=== PATIENT | female | born 1985 | race Caucasian/White ===

== ENCOUNTER 2021-04-21 18:47 | Emergency (ER) | payer OTHER ==
[~2021-04-21] VITALS: Ht 170.2 cm; Wt 77.3 kg
[~2021-04-21 18:47] MED LIST: DULO20CA PO; LAMO25TA31 PO; MULT1TAB92 PO; QUET25TA5 PO; THIA100T22 PO; TRAM-48 PO
--- NOTE | 2021-04-21 19:14 | PHYS DOC ---
Past Medical History Past Medical History: Alcoholism, Seizure Past Surgical History: Other Additional Past Surgical Histo: nose surgery Smoking Status: Never Smoker Alcohol Use: Heavy Drug Use: None General Adult EDM: Chief Complaint: ALCOHOL INTOXICATION HPI: HPI: Patient is a 35 year old female past medical history alcohol abuse anxiety depression presents requesting help for her alcohol abuse. Patient states she was sober for 4 months. States did this at home with no help. Patient states few months ago she started to drink daily again. Patient's last drink was an hour ago. She presents with her father she is very tearful and crying patient states she would like to get help with her alcohol use. Patient denies any homicidal or suicidal ideation. Patient is fully vaccinated. Patient states 2 to 3 days ago she has had multiple episodes of nausea vomiting diarrhea associated with cough and shortness of breath. Patient states she has had previous alcohol withdrawal seizures. Review of Systems: Review of Systems: Review of systems: Constitutional symptoms- No fever, no chills. Eyes- No Discharge, No Visual Loss Respiratory symptoms- No shortness of breath, No wheezing, No Dyspnea on Exertion Cardiovascular Systems; No chest pain, No Palpitations, No syncope Gastrointestinal symptoms: NO abdominal pain, Positive nausea nausea, Positive vomiting or diarrhea. Genitourinary symptoms: No dysuria. Musculoskeletal symptoms: No back pain No extremity pain. NEUROLOGICAL Symptoms: No headache, no generalized weakness; No focal Weakness Skin: No rash. Heart Score: C/O Chest Pain: N/A Risk Factors: Risk Factors: DM, Current or recent (<one month) smoker, HTN, HLP, family history of CAD, obesity. Risk Scores: Score 0 - 3: 2.5% MACE over next 6 weeks - Discharge Home Score 4 - 6: 20.3% MACE over next 6 weeks - Admit for Clinical Observation Score 7 - 10: 72.7% MACE over next 6 weeks - Early Invasive Strategies Allergies: Allergies: Allergies Coded Allergies Type Severity Reaction Last Updated Verified No Known Drug Allergies 10/11/20 No Physical Exam: PE: General: alert, no acute distress. Skin: warm, dry and intact, no erythema, no rash. HENT: bilateral external ears normal, oropharynx moist, nose normal. Head:: Normocephalic, atraumatic. Neck: Trachea midline. Eyes: EOMI, Normal conjunctiva, No drainage CARDIOVASCULAR: Regular rate and rhythm RESPIRATORY: No respiratory distress Back: Full range of motion. MUSCULOSKELETAL: Full range of motion of bilateral upper and lower extremities. GASTROINTESTINAL: Abdomen soft without rebound or guarding. NEUROLOGICAL: Alert and noted to person, place and time. No neurological deficits observed Psychiatric: Cooperative. Normal judgment EKG: EKG: [] Radiology/Procedures: Radiology/Procedures: [] Course & Med Decision Making: Course & Med Decision Making Pertinent Labs and Imaging studies reviewed. (See chart for details) []Evalauted by PAT. Patient accepted by [facility]SI. Patient to be discharged by POV- father. Treatment in ER iv x 2 fluids zofran and ativan. Rx ativan. Dragon Disclaimer: Hoda Disclaimer: This electronic medical record was generated, in whole or in part, using a voice recognition dictation system. Departure Departure Impression: Primary Impression: Alcohol abuse Disposition: 01 HOME / SELF CARE / HOMELESS Condition: STABLE Referrals: NO PCP (PCP) Patient Instructions: Alcohol Intoxication, Alcohol Problems Scripts Lorazepam (ATIVAN) 1 Mg Tablet 1 MG PO TID PRN for TREMORS, #14 TAB Prov: NICOLE DYKES DO 04/22/21 NICOLE DYKES DO Apr 21, 2021 19:14
[2021-04-21 19:31] LABS: BASO % 0 % (0-3); EOS % 0 % (0-3); HEMATOCRIT 49.7 % (36.0-47.0); LYMPH % 22 % (24-48); MEAN CORPUSCULAR HEMOGLOBIN 30 pg (25-35); MEAN CORPUSCULAR HGB CONC 34 g/dL (31-37); MEAN CORPUSCULAR VOLUME 89 fL (79-100); MONO # 0.4 x10^3/uL (0.0-1.1); MONO % 4 % (0-9); NEUT # 6.9 x10^3/uL (1.8-7.7); NEUT % 73 % (31-73); PLATELET COUNT 383 x10^3/uL (140-400); RED BLOOD COUNT 5.61 x10^6/uL (3.50-5.40); RED CELL DISTRIBUTION WIDTH 13.7 % (11.5-14.5); WHITE BLOOD COUNT 9.3 x10^3/uL (4.0-11.0)
[2021-04-21 19:42] LABS: CALCIUM 8.9 mg/dL (8.5-10.1); CREATININE 1.1 mg/dL (0.6-1.0); GFR 55.9
[2021-04-21 19:47] LABS: ALBUMIN 4.9 g/dL (3.4-5.0); ALBUMIN/GLOBULIN RATIO 1.1 (1.0-1.7); TOTAL BILIRUBIN 0.7 mg/dL (0.2-1.0); TOTAL PROTEIN 9.3 g/dL (6.4-8.2)
[2021-04-21 21:34] LABS: U PREG PATIENT NEGATIVE (NEG)
[2021-04-21 21:39] LABS: AMPHETAMINE/METHAMPHETAMINE NEG (NEG); BARBITURATES NEG (NEG); BENZODIAZEPINES NEG (NEG); CANNABINOIDS NEG (NEG); COCAINE NEG (NEG); METHADONE NEG (NEG); OPIATES NEG (NEG); PHENCYCLIDINE NEG (NEG)
[2021-04-21] MEDS ORDERED: ONDANSETRON PF 4 MG/2 ML VIAL. ONE (22:22)
[2021-04-21] MEDS ORDERED: ONDANSETRON PF 4 MG/2 ML VIAL. IVP ONE (22:30)
[2021-04-21] MEDS ORDERED: IV NORMAL SALINE 1000ML BAG 1,000 ML IV ONE (23:45)
[2021-04-22] MEDS ORDERED: ONDANSETRON PF 4 MG/2 ML VIAL. IVP ONE (00:30)
[2021-04-22] MEDS ORDERED: LORA-434 PO (00:50)
[2021-04-22 01:17] VITALS: BP 118/65
--- NOTE | 2021-04-22 17:40 | NUR ---
Attempted to contact pt concerning covid results. No answer, left a voicemail to return the call.
--- NOTE | 2021-04-23 17:54 | NUR ---
IP: Attempted a second time to contact pt concerning covid results. Again, no answer and left a voicemail to return the call.
--- NOTE | 2021-04-24 12:05 | NUR ---
IP: Pt returned my call. Informed her of negative covid test. Pt verbalized understanding.
== END 2021-04-22 01:26 | disposition home or self-care (01) ==
LOC: ER 18:47
DX: F10.20 Alcohol dependence, uncomplicated (principal); R11.2 Nausea with vomiting, unspecified; R19.7 Diarrhea, unspecified; F41.8 Other specified anxiety disorders; Z20.822 Contact with and (suspected) exposure to COVID-19; Y90.8 Blood alcohol level of 240 mg/100 ml or more
CPT/HCPCS: 36415; 80053; 80307; 81025; 85025; 87426; 96361; 96374; 96375; 96376; 99285; G0480; J2060; J2405; J7030; U0003; U0005

== ENCOUNTER 2021-05-24 11:27 | Inpatient (IN) | payer OTHER ==
[~2021-05-24] VITALS: Ht 170.2 cm; Wt 77.3 kg
[~2021-05-24 11:27] MED LIST changes: +LORA-434 PO
[2021-05-24] MEDS ORDERED: FAMOTIDINE 20 MG/2 ML VIAL IVP ONE (12:30)
[2021-05-24] MEDS ORDERED: IV NORMAL SALINE 1000ML BAG 1,000 ML IV ONE (12:30)
[2021-05-24] MEDS ORDERED: ONDANSETRON PF 4 MG/2 ML VIAL. IVP ONE (12:30)
[2021-05-24] MEDS ORDERED: KETOROLAC 15 MG/ML VIAL. IVP ONE (12:30)
[2021-05-24 12:50] LABS: BASO % 0 % (0-3); EOS % 0 % (0-3); HEMATOCRIT 36.9 % (36.0-47.0); HEMOGLOBIN 12.7 g/dL (12.0-15.5); LYMPH # 1.1 x10^3/uL (1.0-4.8); LYMPH % 21 % (24-48); MEAN CORPUSCULAR HEMOGLOBIN 31 pg (25-35); MEAN CORPUSCULAR HGB CONC 34 g/dL (31-37); MEAN CORPUSCULAR VOLUME 89 fL (79-100); MONO # 0.3 x10^3/uL (0.0-1.1); MONO % 6 % (0-9); NEUT # 3.7 x10^3/uL (1.8-7.7); NEUT % 72 % (31-73); PLATELET COUNT 184 x10^3/uL (140-400); RED BLOOD COUNT 4.13 x10^6/uL (3.50-5.40); RED CELL DISTRIBUTION WIDTH 14.9 % (11.5-14.5); WHITE BLOOD COUNT 5.2 x10^3/uL (4.0-11.0)
[2021-05-24 12:50] LABS: BILIRUBIN,URINE NEGATIVE (NEG); CLARITY,URINE CLEAR; COLOR,URINE YELLOW; NITRITE,URINE NEGATIVE (NEG); PH,URINE 8.5 (<5.0-8.0); PROTEIN,URINE 30 mg/dL (NEG-TRACE); UROBILINOGEN,URINE 0.2 mg/dL (0.2 mg/dL)
[2021-05-24 12:52] LABS: BACTERIA,URINE 0 /HPF (0-FEW); RBC,URINE 0 /HPF (0-2); WBC,URINE 0 /HPF (0-4)
--- NOTE | 2021-05-24 13:02 | PHYS DOC ---
Past Medical History Past Medical History: Alcoholism, Seizure Additional Past Medical Histor: SEIZURES FROM ETOH W/D Past Surgical History: Other Additional Past Surgical Histo: nose surgery Smoking Status: Never Smoker Alcohol Use: Heavy Drug Use: None General Adult EDM: Chief Complaint: NAUSEA/VOMITING/DIARRHEA HPI: HPI: Patient is a 35 year old f with past medical history of alcohol abuse who presents with acute alcohol withdrawal. Patient reports she drinks approximately 1 L of rum daily, her last drink was last night around 7 PM. She states she has experienced delirium tremens and seizures due to EtOH withdrawal in the past, her last seizure was a year ago. Patient states she wants to stop drinking, she reports she had stopped drinking for approximately 1 month but fell off the wagon several weeks ago. Patient reports generalized abdominal pain, "abdominal muscle spasms" and several episodes of emesis today. Last menstrual period is uncertain as patient has an IUD. Review of Systems: Review of Systems: Constitutional: Denies fever or chills Eyes: Denies redness or eye pain HENT: Denies nasal congestion or sore throat Respiratory: Denies cough or shortness of breath Cardiovascular: Denies chest pain or palpitations GI: Reports abdominal pain and vomiting : Denies dysuria or hematuria Musculoskeletal: Denies back pain or joint pain Integument: Denies rash or skin lesions Neurologic: Denies headache, focal weakness or sensory changes Complete systems were reviewed and found to be within normal limits, except as documented in this note. Heart Score: C/O Chest Pain: N/A Current Medications: Current Medications Medications (Trade) Dose Ordered Sig/Abiel Start Time Stop Time Status Last Admin Dose Admin Famotidine (Pepcid Vial) 20 mg 1X ONCE 05/24/21 12:30 05/24/21 12:35 DC Ketorolac Tromethamine (Toradol 15mg Vial) 15 mg 1X ONCE 05/24/21 12:30 05/24/21 12:35 DC Ondansetron HCl (Zofran) 4 mg 1X ONCE 05/24/21 12:30 05/24/21 12:35 DC Sodium Chloride 1,000 ml @ 1,000 mls/hr 1X ONCE 05/24/21 12:30 05/24/21 13:29 Allergies: Allergies: Allergies Coded Allergies Type Severity Reaction Last Updated Verified No Known Drug Allergies 10/11/20 No Physical Exam: PE: Constitutional: Well developed, well nourished, appears uncomfortable, non-toxic appearance HENT: Normocephalic, atraumatic Eyes: PERRL, conjunctiva normal, no discharge, wearing contacts, EOM limited secondary to patient's limited participation. Neck: Normal range of motion, no tenderness, supple Lungs & Thorax: No respiratory distress, equal chest rise and fall Abdomen: Soft, no tenderness Skin: Warm, dry, no erythema, no rash Back: No tenderness, no CVA tenderness Extremities: No tenderness, ROM intact, no edema Neurologic: Alert and oriented X 3, normal motor function, normal sensory function, no focal deficits noted Psychologic: Anxious, answering questions appropriately Current Patient Data: Labs: Laboratory Tests Test 05/24/21 12:10 05/24/21 12:16 Urine Collection Type Unknown Urine Color Yellow Urine Clarity Clear Urine pH 8.5 (<5.0-8.0) Urine Specific [place] 1.020 (1.000-1.030) Urine Protein 30 mg/dL (NEG-TRACE) Urine Glucose (UA) Negative mg/dL (NEG) Urine Ketones (Stick) Negative mg/dL (NEG) Urine Blood Negative (NEG) Urine Nitrite Negative (NEG) Urine Bilirubin Negative (NEG) Urine Urobilinogen Dipstick 0.2 mg/dL (0.2 mg/dL) Urine Leukocyte Esterase Negative (NEG) Urine RBC 0 /HPF (0-2) Urine WBC 0 /HPF (0-4) Urine Squamous Epithelial Cells Occ /LPF Urine Bacteria 0 /HPF (0-FEW) POC Urine HCG, Qualitative Hcg negative (Negative) Vital Signs: Vital Signs Date Time Temp Pulse Resp B/P (MAP) Pulse Ox O2 Delivery O2 Flow Rate FiO2 05/24/21 11:51 98.2 116 20 135/82 (99) 99 Room Air 98.2 EKG: EKG: [] Radiology/Procedures: Radiology/Procedures: [] Course & Med Decision Making: Course & Med Decision Making 35-year-old female who presents with acute alcohol withdrawal. Patient tremulous on arrival but alert and oriented. Given fluids, Ativan, Zofran and a banana bag with interval improvement. Given history of seizures secondary to acute withdrawal patient to be admitted. Patient requiring admission for further evaluation and treatment. Discussed with (hospitalist) who is in agreement with admission. Discussed findings and plan with patient, who acknowledges understanding and agreement. Hoda Disclaimer: Hoda Disclaimer: This electronic medical record was generated, in whole or in part, using a voice recognition dictation system. Departure Departure Impression: Primary Impression: Alcohol withdrawal Qualified Codes: F10.239 - Alcohol dependence with withdrawal, unspecified Additional Impression: Impending delirium tremens Disposition: 01 HOME / SELF CARE / HOMELESS Admitting Physician: ELLYN Pizarro) Condition: STABLE Referrals: NO PCP (PCP) MICHAEL PINEDA DO May 24, 2021 13:02
[2021-05-24 13:04] LABS: CALCIUM 7.7 mg/dL (8.5-10.1); CREATININE 0.7 mg/dL (0.6-1.0); GFR 94.2; POTASSIUM 3.9 mmol/L (3.5-5.1)
[2021-05-24 13:11] LABS: ALBUMIN 3.7 g/dL (3.4-5.0); ALBUMIN/GLOBULIN RATIO 1.1 (1.0-1.7); MAGNESIUM 1.8 mg/dL (1.8-2.4); TOTAL BILIRUBIN 0.3 mg/dL (0.2-1.0); TOTAL PROTEIN 7.2 g/dL (6.4-8.2)
[2021-05-24] MEDS ORDERED: MULTIVIT INFUSN,ADULT 4,VIT K 10 ML, THIAMINE INJ 100 MG, FOLIC ACID INJ 1 MG in IV NOR... IV ONE (14:00)
[2021-05-24 14:21] LABS: AMPHETAMINE/METHAMPHETAMINE NEG (NEG); BARBITURATES NEG (NEG); BENZODIAZEPINES NEG (NEG); CANNABINOIDS NEG (NEG); COCAINE NEG (NEG); METHADONE NEG (NEG); OPIATES NEG (NEG); PHENCYCLIDINE NEG (NEG)
[2021-05-24] MEDS ORDERED: IV NORMAL SALINE 1000ML BAG 1,000 ML IV SCH (14:45)
[2021-05-24] MEDS ORDERED: ONDANSETRON PF 4 MG/2 ML VIAL. IVP PRN (14:45)
[2021-05-24 15:35] VITALS: BP 102/69
--- NOTE | 2021-05-24 17:06 | HP ---
DATE OF SERVICE: 05/24/2021 ADMIT DATE: 05/24/2021 CHIEF COMPLAINT: Nausea, vomiting, diarrhea, alcohol withdrawal. HISTORY OF PRESENT ILLNESS: The patient is a pleasant 35-year-old female who drinks a liter of rum daily. She presents with some nausea, vomiting, diarrhea, now she started to have some alcohol withdrawal. I discussed the case with ER physician. We are going to admit the patient and give her alcohol withdrawal protocol. PAST MEDICAL HISTORY: Delirium tremens, alcohol seizures, alcoholism. ALLERGIES: None. FAMILY HISTORY: Diabetes and alcoholism. SOCIAL HISTORY: She drinks. She states she got fired from her job. 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 She does not smoke, no drugs. MEDICATIONS: Reviewed, please refer to the MRAD. REVIEW OF SYSTEMS: GENERAL: No history of weight change, weakness or fevers. SKIN: No bruising, hair changes or rashes. EYES: No blurred, double or loss of vision. NOSE AND THROAT: No history of nosebleeds, hoarseness or sore throat. HEART: No history of palpitations, chest pain or shortness of breath on exertion. LUNGS: Denies cough, hemoptysis, wheezing or shortness of breath. GASTROINTESTINAL: She complaints of nausea, vomiting, diarrhea. GENITOURINARY: No history of frequency, urgency, hesitancy or nocturia. NEUROLOGIC: She complains of shaking. PSYCHIATRIC: She complains of depression. ENDOCRINE: No history of heat or cold intolerance, polyuria or polydipsia. EXTREMITIES: Denies muscle weakness, joint pain, pain on walking or stiffness. PHYSICAL EXAMINATION: VITALS: Within normal limits and are stable. GENERAL: She is depressed. HEENT: Normal cephalic atraumatic, external auditory canals are patent. EYES: Extraocular muscles are intact, pupils are equally round and reactive to light and accommodation. MUSCULOSKELETAL: Well developed, well nourished, good range of motion. ENDOCRINE: No thyromegaly was palpated. LYMPHATICS: No cervical chain or axillary nodes were noted. HEMATOPOIETIC: No bruising. NECK: Supple, no JVD, no thyromegaly was noted. LUNGS: Clear to auscultation in all lung cole without rhonchi or wheezing. HEART: RRR, S1, S2 present. Peripheral pulses intact, no obvious murmurs were noted. ABDOMEN: Soft, nontender. Positive bowel sounds no organomegaly, normal bowel sounds. EXTREMITIES: Without any cyanosis, clubbing, or edema. Pedal pulses intact, Homans sign is negative. NEUROLOGIC: She has shaking. PSYCHIATRIC: She is depressed. SKIN: No ulcerations or rashes, good skin turgor, no jaundice. VASCULAR: Good capillary refill, neurovascular bundle appears to be intact. LABORATORY DATA: Hematology is normal. Electrolytes are normal. AST 39. Urinalysis negative. Drug screen shows 117 alcohol. COVID testing is negative. ASSESSMENT AND PLAN: Alcohol withdrawal. The patient will be admitted for alcohol withdrawal protocol, IV fluids, benzos, vitamins. Home meds. Deep venous thrombosis prophylaxis. Full code. Renato Olguin. RAUL/TONYA DR: RAUL/bk TID: [id number]
[2021-05-24 19:00] VITALS: BP 129/80
[2021-05-24 23:06] VITALS: BP 132/82
[2021-05-25 03:09] VITALS: BP 119/86
[2021-05-25 07:00] VITALS: BP 120/80
[2021-05-25] MEDS ORDERED: LORA-434 PO (10:26)
--- NOTE | 2021-05-25 10:29 | PDOC3 ---
[facility]-Discharge Summary Date of Admission: Date of Admission: May 24, 2021 Date of Discharge: Date of Discharge: May 25, 2021 Admission Diagnosis: Problems: (1) Alcohol withdrawal Hospital Course: Hospital Course: The patient is a pleasant 35-year-old female who drinks a liter of rum daily. She presents with some nausea, vomiting, diarrhea, now she started to have some alcohol withdrawal. I discussed the case with ER physician. We are going to admit the patient and give her alcohol withdrawal protocol. 05/25 Patient evaluated examined at bedside. Resting movements in terms of withdrawal not having any symptoms. She says she knows how to manage at home as she is gone through withdrawal before. She is active in Alcoholics Anonymous. Okay for discharge from my perspective as she has plenty of resources available at home according to her. Labs looked okay on admission. Okay to discharge today. Greater than 30 minutes spent on discharge. Advance care planning for 19 minutes. Disposition: Disposition/Orders: D/C to Home Activity: Activity: Resume previous activity Diet: Diet: Regular Medications: Home Meds Active Scripts Lorazepam (ATIVAN) 1 Mg Tablet, 1 MG PO TID PRN for TREMORS for 5 Days, #15 TAB Prov:PATRICIA BACON MD 05/25/21 Reported Medications Lamotrigine (LAMOTRIGINE) 25 Mg Tab.er.24, 1 TAB PO DAILY for 30 Days, #30 TAB 0 Refills 10/11/20 Quetiapine Fumarate (SEROQUEL) 25 Mg Tablet, 1 TAB PO QHS, #30 TAB 2 Refills 10/11/20 Scheduled Lamotrigine (Lamotrigine), 1 TAB PO DAILY, (Reported) Quetiapine Fumarate (Seroquel), 1 TAB PO QHS, (Reported) Scheduled PRN Lorazepam (Ativan), 1 MG PO TID PRN for TREMORS Total Time: Total Time: 38 min Justicifation of Admission Dx: Justifications for Admission: Justification of Admission Dx: Yes Altered Mental Status: Altered Mental Status PATRICIA BACON MD May 25, 2021 10:29
[2021-05-25 11:29] VITALS: BP 135/86
--- NOTE | 2021-05-25 12:00 | NUR ---
Discharge Note: WOODROW DONNELLY HATILLO Discharge instructions and discharge home medications reviewed with Patient and a copy given. All questions have been answered and understanding verbalized. The following instructions and handouts were given: alcohol withdrawal education, worsening symptoms, and medications Discontinued lines and drains: IV discontinued from right hand, skin intact, and telemetry removed. Patient discharged to home with family member via private vehicle.
== END 2021-05-25 11:35 | disposition home or self-care (01) | DRG 897 ==
LOC: ER 11:27 → 5 NORTH 14:25
PROVIDERS: ADMIT Internal Medicine; ATTEND Internal Medicine
DX: F10.239 Alcohol dependence with withdrawal, unspecified (principal); Z56.0 Unemployment, unspecified; Z83.3 Family history of diabetes mellitus; Z20.822 Contact with and (suspected) exposure to COVID-19
CPT/HCPCS: 36415; 80053; 80307; 81001; 81025; 83690; 83735; 85025; 87426; 96361; 96365; 96375; G0480; J1885; J2060; J2405; J3411; J3490; J7030; U0003; 99285-25; G0378

== ENCOUNTER 2021-08-05 21:01 | Inpatient (IN) | payer OTHER ==
[~2021-08-05] VITALS: Ht 170.2 cm; Wt 81.0 kg
[2021-08-05 22:54] LABS: BASO % 1 % (0-3); EOS % 1 % (0-3); HEMATOCRIT 42.3 % (36.0-47.0); LYMPH # 1.9 x10^3/uL (1.0-4.8); LYMPH % 33 % (24-48); MEAN CORPUSCULAR HEMOGLOBIN 32 pg (25-35); MEAN CORPUSCULAR HGB CONC 36 g/dL (31-37); MEAN CORPUSCULAR VOLUME 89 fL (79-100); MONO # 0.5 x10^3/uL (0.0-1.1); MONO % 9 % (0-9); NEUT # 3.2 x10^3/uL (1.8-7.7); NEUT % 57 % (31-73); PLATELET COUNT 225 x10^3/uL (140-400); RED BLOOD COUNT 4.77 x10^6/uL (3.50-5.40); RED CELL DISTRIBUTION WIDTH 15.1 % (11.5-14.5); WHITE BLOOD COUNT 5.7 x10^3/uL (4.0-11.0)
[2021-08-05] MEDS ORDERED: ONDANSETRON PF 4 MG/2 ML VIAL. IVP ONE (23:00)
[2021-08-05 23:05] LABS: CALCIUM 8.6 mg/dL (8.5-10.1); CREATININE 1.1 mg/dL (0.6-1.0); GFR 55.9; POTASSIUM 3.7 mmol/L (3.5-5.1)
[2021-08-05 23:11] LABS: ALBUMIN 4.3 g/dL (3.4-5.0); AMORPHOUS SEDIMENT,UR PRESENT /HPF; BACTERIA,URINE FEW /HPF (0-FEW); GRANULAR CASTS,URINE OCCASIONAL /HPF; HYALINE CASTS, URINE MODERATE /HPF; RBC,URINE OCC /HPF (0-2); TOTAL BILIRUBIN 0.6 mg/dL (0.2-1.0); TOTAL PROTEIN 8.4 g/dL (6.4-8.2)
[2021-08-05 23:16] LABS: ACETAMIN < 2 mcg/ml (10-30); ETHANOL 320 mg/dL (0-10); SALIC 0.7 mg/dL (2.8-20.0)
[2021-08-05] MEDS ORDERED: MULTIVIT INFUSN,ADULT 4,VIT K 10 ML, THIAMINE INJ 100 MG, FOLIC ACID INJ 1 MG in IV NOR... IV ONE (23:30)
--- NOTE | 2021-08-06 00:13 | PHYS DOC ---
Past Medical History Past Medical History: Alcoholism, Seizure Additional Past Medical Histor: SEIZURES FROM ETOH W/D Past Surgical History: Other Additional Past Surgical Histo: nose surgery Smoking Status: Never Smoker Alcohol Use: Heavy Additional Information: pt has a hx of binge drinking and states she has a hx of alcohol reltated issues Drug Use: None General Adult EDM: Chief Complaint: ALCOHOL INTOXICATION HPI: HPI: Patient is a 35 year old female with history of alcohol abuse delirium tremens and seizures due to alcohol withdrawal presents to the ED today complaining of alcohol intoxication. Patient states she drank 1/5 of liquor today. She states she drinks daily and would like to get help. She states she typically has to be admitted to detox. She states she is currently on AA program. Review of Systems: Review of Systems: Constitutional: Denies fever or chills. [] Eyes: Denies change in visual acuity. [] HENT: Denies nasal congestion or sore throat. [] Respiratory: Denies cough or shortness of breath. [] Cardiovascular: Denies chest pain or edema. [] GI: Denies abdominal pain, nausea, vomiting, bloody stools or diarrhea. [] : Denies dysuria. [] Musculoskeletal: Denies back pain or joint pain. [] Integument: Denies rash. [] Neurologic: Denies headache, focal weakness or sensory changes. Psychiatric: Reports alcohol intoxication Heart Score: C/O Chest Pain: N/A Risk Factors: Risk Factors: DM, Current or recent (<one month) smoker, HTN, HLP, family histo ry of CAD, obesity. Risk Scores: Score 0 - 3: 2.5% MACE over next 6 weeks - Discharge Home Score 4 - 6: 20.3% MACE over next 6 weeks - Admit for Clinical Observation Score 7 - 10: 72.7% MACE over next 6 weeks - Early Invasive Strategies Current Medications: Current Medications Medications (Trade) Dose Ordered Sig/Abiel Start Time Stop Time Status Last Admin Dose Admin Lorazepam (Ativan Inj) 1 mg 1X ONCE 08/06/21 00:15 08/06/21 00:16 UNV Multivitamins 10 ml/Thiamine HCl 100 mg/Folic Acid 1 mg/Sodium Chloride 1,011.2 ml @ 1,000.088 mls/hr 1X ONCE 08/05/21 23:30 08/06/21 00:30 08/05/21 23:04 1,000.088 MLS/HR Ondansetron HCl (Zofran) 4 mg 1X ONCE 08/05/21 23:00 08/05/21 23:01 DC 08/05/21 23:04 4 MG Sodium Chloride 1,000 ml @ 1,000 mls/hr 1X ONCE 08/06/21 00:15 08/06/21 01:14 UNV Allergies: Allergies: Allergies Coded Allergies Type Severity Reaction Last Updated Verified No Known Drug Allergies 10/11/20 No Physical Exam: PE: Constitutional: Well developed, well nourished, no acute distress, non-toxic appearance. [] HENT: Normocephalic, atraumatic, bilateral external ears normal, oropharynx moist, no oral exudates, nose normal. [] Eyes: PERRLA, EOMI, conjunctiva normal, no discharge. [] Neck: Normal range of motion, no tenderness, supple, no stridor. [] Cardiovascular:Heart rate regular rhythm, no murmur [] Lungs & Thorax: Bilateral breath sounds clear to auscultation [] Abdomen: Bowel sounds normal, soft, no tenderness, no masses, no pulsatile masses. [] Skin: Warm, dry, no erythema, no rash. [] Back: No tenderness, no CVA tenderness. [] Extremities: No tenderness, no cyanosis, no clubbing, ROM intact, no edema. [] Neurologic: Alert and oriented X 3, normal motor function, normal sensory function, no focal deficits noted. [] Psychologic: Appears intoxicated Current Patient Data: Labs: Laboratory Tests Test 08/05/21 22:36 08/05/21 22:53 White Blood Count 5.7 x10^3/uL (4.0-11.0) Red Blood Count 4.77 x10^6/uL (3.50-5.40) Hemoglobin 15.0 g/dL (12.0-15.5) Hematocrit 42.3 % (36.0-47.0) Mean Corpuscular Volume 89 fL (79-100) Mean Corpuscular Hemoglobin 32 pg (25-35) Mean Corpuscular Hemoglobin Concent 36 g/dL (31-37) Red Cell Distribution Width 15.1 % (11.5-14.5) H Platelet Count 225 x10^3/uL (140-400) Neutrophils (%) (Auto) 57 % (31-73) Lymphocytes (%) (Auto) 33 % (24-48) Monocytes (%) (Auto) 9 % (0-9) Eosinophils (%) (Auto) 1 % (0-3) Basophils (%) (Auto) 1 % (0-3) Neutrophils # (Auto) 3.2 x10^3/uL (1.8-7.7) Lymphocytes # (Auto) 1.9 x10^3/uL (1.0-4.8) Monocytes # (Auto) 0.5 x10^3/uL (0.0-1.1) Eosinophils # (Auto) 0.0 x10^3/uL (0.0-0.7) Basophils # (Auto) 0.0 x10^3/uL (0.0-0.2) Urine Collection Type Unknown Urine Color (Auto) Yellow Urine Turbidity Hazy Urine pH (Auto) 6.0 (<5.0-8.0) Urine Specific [place] 1.023 (1.000-1.030) Urine Protein (Auto) 200 mg/dL (Negative) Urine Glucose (Auto)(UA) Negative mg/dL (Negative) Urine Ketones (Auto) 40 mg/dL (Negative) Urine Blood (Auto) Moderate (Negative) Urine Nitrite Negative (Negative) Urine Bilirubin (Auto) Negative (Negative) Urine Urobilinogen (Auto) Normal mg/dL (Normal) Urine Leukocyte Esterase (Auto) Negative (Negative) Urine RBC Occ /HPF (0-2) Urine WBC 1-4 /HPF (0-4) Urine Squamous Epithelial Cells Mod /LPF Urine Amorphous Sediment Present /HPF Urine Bacteria Few /HPF (0-FEW) Urine Hyaline Casts Moderate /HPF Urine Granular Casts Occasional /HPF Urine Mucus Marked /LPF Sodium Level 139 mmol/L (136-145) Potassium Level 3.7 mmol/L (3.5-5.1) Chloride Level 97 mmol/L (98-107) L Carbon Dioxide Level 22 mmol/L (21-32) Anion Gap 20 (6-14) H Blood Urea Nitrogen 18 mg/dL (7-20) Creatinine 1.1 mg/dL (0.6-1.0) H Estimated GFR (Cockcroft-Gault) 55.9 BUN/Creatinine Ratio 16 (6-20) Glucose Level 132 mg/dL (70-99) H Calcium Level 8.6 mg/dL (8.5-10.1) Total Bilirubin 0.6 mg/dL (0.2-1.0) Aspartate Amino Transferase (AST) 130 U/L (15-37) H Alanine Aminotransferase (ALT) 124 U/L (14-59) H Alkaline Phosphatase 129 U/L (46-116) H Total Protein 8.4 g/dL (6.4-8.2) H Albumin 4.3 g/dL (3.4-5.0) Albumin/Globulin Ratio 1.0 (1.0-1.7) Lipase 144 U/L (73-393) Salicylates Level 0.7 mg/dL (2.8-20.0) L Salicylate Last Dose Date Salicylate Last Dose Time Acetaminophen Level < 2 mcg/ml (10-30) L Acetaminophen Last Dose Date Acetaminophen Last Dose Time Ethyl Alcohol Level 320 mg/dL (0-10) H POC Urine HCG, Qualitative Hcg negative (Negative) Laboratory Tests 08/05/21 22:36 Laboratory Tests 08/05/21 22:36 Vital Signs: Vital Signs Date Time Temp Pulse Resp B/P (MAP) Pulse Ox O2 Delivery O2 Flow Rate FiO2 08/05/21 22:32 98.9 125 16 137/94 (108) 96 98.9 08/05/21 21:15 Room Air EKG: EKG: [] Radiology/Procedures: Radiology/Procedures: [] Course & Med Decision Making: Course & Med Decision Making Pertinent Labs and Imaging studies reviewed. (See chart for details) This is a 35-year-old female patient presented to the ED today with alcohol intoxication, history of seizures and delirium tremors from alcohol withdrawal. Patient is requesting to be admitted for detox. CBC with no acute findings, CMP with AST of 130, ALT of 124, ALK of 129, alcohol level 320. Given a banana bag and a liter of fluid. Given Ativan. Admitted under Dr. Mari. Pat team consult placed for tomorrow Dragon Disclaimer: Dragon Disclaimer: This electronic medical record was generated, in whole or in part, using a voice recognition dictation system. Departure Departure Impression: Primary Impression: Alcohol intoxication Qualified Codes: F10.929 - Alcohol use, unspecified with intoxication, unspecified Disposition: 09 ADMITTED INPATIENT Condition: STABLE Referrals: NO PCP (PCP) SOHA ROBLES [employer] PL[employer]ING MANAGER August 06, 2021 00:13
[2021-08-06] MEDS ORDERED: IV NORMAL SALINE 1000ML BAG 1,000 ML IV ONE (00:30)
--- NOTE | 2021-08-06 00:56 | NUR ---
Pt summary report sent via tube system at 0057. Pt is assigned to inpatient room 675.
[2021-08-06] MEDS ORDERED: ACETAMINOPHEN 325 MG TABLET. PO PRN (01:00)
[2021-08-06] MEDS ORDERED: cloNIDine HCL 0.1 MG TABLET PO PRN ×2 (01:00→16:00)
[2021-08-06] MEDS ORDERED: ONDANSETRON PF 4 MG/2 ML VIAL. IVP PRN (01:00)
[2021-08-06 01:38] VITALS: BP 144/84
--- NOTE | 2021-08-06 02:30 | NUR ---
The patient, WALTER DONNELLY, 35 y/o, F admitted by TODD OLIVARES MD, was given written information regarding hospital policies, unit procedures and contact persons. Valuables were checked and documented. call light in place will cont to monitor. pmrn
[2021-08-06 03:53] VITALS: BP 121/72
[2021-08-06 07:00] VITALS: BP 136/68
[2021-08-06] MEDS ORDERED: NALT50TA PO (07:18)
[2021-08-06] MEDS ORDERED: LAMO200T6 PO (07:18)
[2021-08-06] MEDS ORDERED: QUET100T4 PO (07:18)
[2021-08-06] MEDS ORDERED: DULO60CA45 PO (07:18)
--- NOTE | 2021-08-06 08:25 | PDOC1 ---
History and Physical Date of Admission Date of Admission DATE: 08/06/21 TIME: : Identification/Chief Complaint Chief Complaint Acute encephalopathy Source Source: Patient History of Present Illness History of Present Illness Ms Monaco is a 35 year old female with history of depression since age 10, alcohol abuse delirium tremens and seizures due to alcohol withdrawal presents to the ED today complaining of confusion and intoxication. She has been drinking for 2 weeks straight and drank 1/5 of rum prior to arrival.. She states she drinks daily and would like to get help. She states she typically has to be admitted to detox. She states she is currently on AA program. She previously did inpatient cut with [facility] in 2015 and did their IOP program and has since been hospitalized multiple times for alcohol withdrawal issues and [facility] 4 months in 2019 and in 2 months late in 2020 but continues to relapse. She is maintained on as needed lorazepam outpatient. Labs with WBC 5.7, Hb 15, platelets 225, NA 139, K3.7, BUN 18, CR 1.1, anion gap 20, glucose 132, calcium 8.6, bilirubin 0.6, AST 130, ALT 124, alkaline phosph atase 129, albumin 4.3, lipase 144. Rapid COVID-19 negative. Alcohol level at 2236 was 320 mg/James Past Medical History Psych: Anxiety, Addictions, Depression Past Surgical History Past Surgical History: Other (nasal surgery) Family History Family History: Depression Social History Smoke: No ALCOHOL: heavy Current Problem List Problem List Problems Medical Problems: (1) Alcohol intoxication Status: Acute Current Medications Current Medications Current Medications Multivitamins 10 ml/Thiamine HCl 100 mg/Folic Acid 1 mg/Sodium Chloride 1,011.2 ml @ 1,000.088 mls/hr 1X ONCE IV Last administered on 08/05/21at 23:04; Start 08/05/21 at 23:30; Stop 08/06/21 at 00:30; Status DC Ondansetron HCl (Zofran) 4 mg 1X ONCE IVP Last administered on 08/05/21at 23:04; Start 08/05/21 at 23:00; Stop 08/05/21 at 23:01; Status DC Lorazepam (Ativan Inj) 1 mg 1X ONCE IVP Last administered on 08/05/21at 23:04; Start 08/05/21 at 23:00; Stop 08/05/21 at 23:01; Status DC Lorazepam (Ativan Inj) 1 mg 1X ONCE IVP ; Start 08/06/21 at 00:30; Stop 08/06/21 at 00:31; Status DC Sodium Chloride 1,000 ml @ 1,000 mls/hr 1X ONCE IV Last administered on 08/06/21at 00:30; Start 08/06/21 at 00:30; Stop 08/06/21 at 01:29; Status DC Ondansetron HCl (Zofran) 4 mg PRN Q8HRS PRN IVP NAUSEA/VOMITING 1ST CHOICE Last administered on 08/06/21at 07:37; Start 08/06/21 at 01:00; Stop 08/07/21 at 00:59 Acetaminophen (Tylenol) 650 mg PRN Q4HRS PRN PO FEVER > 100.3'F; Start 08/06/21 at 01:00; Stop 08/07/21 at 00:59 Multivitamins 10 ml/Thiamine HCl 100 mg/Folic Acid 1 mg/Sodium Chloride 1,011.2 ml @ 100 mls/ hr DAILY IV ; Start 08/06/21 at 09:00; Stop 08/06/21 at 19:07 Lorazepam (Ativan Inj) 2 mg PRN Q1HR PRN IV For CIWA 8-14 Last administered on 08/06/21at 08:16; Start 08/06/21 at 01:00 Clonidine HCl (Catapres) 0.1 mg PRN Q1HR PRN PO SBP > 180 or DBP > 100, MRX3; Start 08/06/21 at 01:00 Multivitamins (Thera M Plus) 1 tab DAILY PO ; Start 08/07/21 at 09:00 Folic Acid (Folic Acid) 1 mg DAILY PO ; Start 08/07/21 at 09:00 Thiamine Mononitrate (Vitamin B-1) 100 mg DAILY PO ; Start 08/07/21 at 09:00 Active Scripts Active Ativan (Lorazepam) 1 Mg Tablet 1 Mg PO TID PRN 5 Days Reported Seroquel (Quetiapine Fumarate) 100 Mg Tablet 1 Tab PO QHS Naltrexone Hcl 50 Mg Tablet 1 Tab PO DAILY Duloxetine Hcl 60 Mg Capsule.dr 1 Cap PO BID Lamotrigine 200 Mg Tablet 1 Tab PO DAILY Allergies Allergies: Coded Allergies: No Known Drug Allergies (Unverified , 10/11/20) ROS General: YES: Fatigue, Malaise; No: Chills, Night Sweats, Appetite, Other PSYCHOLOGICAL ROS: YES: Anxiety, Depression; No: Behavioral Disorder, Concentration difficultie, Decreased libido, Disorientation, Hallucinations, Hostility, Irritablity, Memory difficulties, Mood Swings, Obsessive thoughts, Physical abuse, Sexual abuse, Sleep disturbances, Suicidal ideation, Other HEENT: No: Heacaches, Visual Changes, Hearing change, Nasal congestion, Nasal discharge, Oral lesions, Sinus pain, Sore Throat, Epistaxis, Sneezing, Snoring, Tinnitus, Vertigo, Vocal changes, Other ALLERGY AND IMMUNOLOGY: No: Hives, Insect Bite Sensitivity, Itchy/Watery Eyes, Nasal Congestion, Post Nasal Drip, Seasonal Allergies, Other Hematological and Lymphatic: No: Bleeding Problems, Blood Clots, Blood Transfusions, Brusing, Night Sweats, Pallor, Swollen Lymph Nodes, Other ENDOCRINE: No: Breast Changes, Galactorrhea, Hair Pattern Changes, Hot Flashes, Malaise/lethargy, Mood Swings, Palpitations, Polydipsia/polyuria, Skin Changes, Temperature Intolerance, Unexpected Weight Changes, Other Breast: No New/Changing Breast Lumps, No Nipple changes, No Nipple discharge, No Other Respiratory: No: Cough, Hemoptysis, Orthopnea, Pleuritic Pain, Shortness of breath, SOB with excertion, Sputum Changes, Stridor, Tachypnea, Wheezing, Other Cardiovascular: No Chest Pain, No Palpitations, No Orthopnea, No Paroxysmal Noc. Dyspnea, No Edema, No Lt Headedness, No Other Gastrointestinal: Yes Nausea, Yes Abdominal Pain; No Vomiting, No Diarrhea, No Constipation, No Melena, No Hematochezia, No Other Genitourinary: No Dysuria, No Frequency, No Incontinence, No Hematuria, No Retention, No Discharge, No Urgency, No Pain, No Flank Pain, No Other, No , No , No , No , No , No , No Musculoskeletal: No Gait Disturbance, No Joint Pain, No Joint Stiffness, No Joint Swelling, No Muscle Pain, No Muscular Weakness, No Pain In:, No Swelling In:, No Other Neurological: No Behavorial Changes, No Bowel/Bladder ControlChng, No Confusion, No Dizziness, No Gait Disturbance, No Headaches, No Impaired Coord/balance, No Memory Loss, No Numbness/Tingling, No Seizures, No Speech Problems, No Tremors, No Visual Changes, No Weakness, No Other Skin: No Dry Skin, No Eczema, No Hair Changes, No Lumps, No Mole Changes, No Mottling, No Nail Changes, No Pruritus, No Rash, No Skin Lesion Changes, No Other, No Acne Physical Exam General: Alert, Cooperative, mild distress HEENT: Atraumatic, PERRLA, EOMI, Mucous membr. moist/pink Lungs: Clear to auscultation, Normal air movement Heart: S1S2, RRR, no thrills, no rubs, no gallops, no murmurs Abdomen: Normal bowel sounds, Soft, No tenderness, No hepatosplenomegaly, No masses Rectal Exam: not examined Extremities: No clubbing, No cyanosis, No edema, Normal pulses, No tenderness/swelling Skin: No rashes, No breakdown, No significant lesion Neuro: Normal gait, Normal speech, Strength at 5/5 X4 ext, Normal tone, Sensation intact, Cranial nerves 3-12 NL, Reflexes 2+ Psych/Mental Status: Mental status NL, Mood NL Vitals Vitals Vital Signs Date Time Temp Pulse Resp B/P (MAP) Pulse Ox O2 Delivery O2 Flow Rate FiO2 08/06/21 03:53 98.4 93 18 121/72 (88) 97 Room Air 98.4 Labs Labs Laboratory Tests Test 08/05/21 22:36 08/05/21 22:53 08/06/21 02:56 White Blood Count 5.7 x10^3/uL (4.0-11.0) Red Blood Count 4.77 x10^6/uL (3.50-5.40) Hemoglobin 15.0 g/dL (12.0-15.5) Hematocrit 42.3 % (36.0-47.0) Mean Corpuscular Volume 89 fL (79-100) Mean Corpuscular Hemoglobin 32 pg (25-35) Mean Corpuscular Hemoglobin Concent 36 g/dL (31-37) Red Cell Distribution Width 15.1 % (11.5-14.5) Platelet Count 225 x10^3/uL (140-400) Neutrophils (%) (Auto) 57 % (31-73) Lymphocytes (%) (Auto) 33 % (24-48) Monocytes (%) (Auto) 9 % (0-9) Eosinophils (%) (Auto) 1 % (0-3) Basophils (%) (Auto) 1 % (0-3) Neutrophils # (Auto) 3.2 x10^3/uL (1.8-7.7) Lymphocytes # (Auto) 1.9 x10^3/uL (1.0-4.8) Monocytes # (Auto) 0.5 x10^3/uL (0.0-1.1) Eosinophils # (Auto) 0.0 x10^3/uL (0.0-0.7) Basophils # (Auto) 0.0 x10^3/uL (0.0-0.2) Urine Collection Type Unknown Urine Color (Auto) Yellow Urine Turbidity Hazy Urine pH (Auto) 6.0 (<5.0-8.0) Urine Specific [place] 1.023 (1.000-1.030) Urine Protein (Auto) 200 mg/dL (Negative) Urine Glucose (Auto)(UA) Negative mg/dL (Negative) Urine Ketones (Auto) 40 mg/dL (Negative) Urine Blood (Auto) Moderate (Negative) Urine Nitrite Negative (Negative) Urine Bilirubin (Auto) Negative (Negative) Urine Urobilinogen (Auto) Normal mg/dL (Normal) Urine Leukocyte Esterase (Auto) Negative (Negative) Urine RBC Occ /HPF (0-2) Urine WBC 1-4 /HPF (0-4) Urine Squamous Epithelial Cells Mod /LPF Urine Amorphous Sediment Present /HPF Urine Bacteria Few /HPF (0-FEW) Urine Hyaline Casts Moderate /HPF Urine Granular Casts Occasional /HPF Urine Mucus Marked /LPF Sodium Level 139 mmol/L (136-145) Potassium Level 3.7 mmol/L (3.5-5.1) Chloride Level 97 mmol/L (98-107) Carbon Dioxide Level 22 mmol/L (21-32) Anion Gap 20 (6-14) Blood Urea Nitrogen 18 mg/dL (7-20) Creatinine 1.1 mg/dL (0.6-1.0) Estimated GFR (Cockcroft-Gault) 55.9 BUN/Creatinine Ratio 16 (6-20) Glucose Level 132 mg/dL (70-99) Calcium Level 8.6 mg/dL (8.5-10.1) Total Bilirubin 0.6 mg/dL (0.2-1.0) Aspartate Amino Transf (AST/SGOT) 130 U/L (15-37) Alanine Aminotransferase (ALT/SGPT) 124 U/L (14-59) Alkaline Phosphatase 129 U/L (46-116) Total Protein 8.4 g/dL (6.4-8.2) Albumin 4.3 g/dL (3.4-5.0) Albumin/Globulin Ratio 1.0 (1.0-1.7) Lipase 144 U/L (73-393) Salicylates Level 0.7 mg/dL (2.8-20.0) Salicylate Last Dose Date Salicylate Last Dose Time Acetaminophen Level < 2 mcg/ml (10-30) Acetaminophen Last Dose Date Acetaminophen Last Dose Time Ethyl Alcohol Level 320 mg/dL (0-10) Bedside Urine HCG, Qualitative Hcg negative (Negative) SARS-CoV-2 Antigen (Rapid) Negative (NEGATIVE) Laboratory Tests Test 08/05/21 22:36 08/05/21 22:53 08/06/21 02:56 White Blood Count 5.7 x10^3/uL (4.0-11.0) Red Blood Count 4.77 x10^6/uL (3.50-5.40) Hemoglobin 15.0 g/dL (12.0-15.5) Hematocrit 42.3 % (36.0-47.0) Mean Corpuscular Volume 89 fL (79-100) Mean Corpuscular Hemoglobin 32 pg (25-35) Mean Corpuscular Hemoglobin Concent 36 g/dL (31-37) Red Cell Distribution Width 15.1 % (11.5-14.5) Platelet Count 225 x10^3/uL (140-400) Neutrophils (%) (Auto) 57 % (31-73) Lymphocytes (%) (Auto) 33 % (24-48) Monocytes (%) (Auto) 9 % (0-9) Eosinophils (%) (Auto) 1 % (0-3) Basophils (%) (Auto) 1 % (0-3) Neutrophils # (Auto) 3.2 x10^3/uL (1.8-7.7) Lymphocytes # (Auto) 1.9 x10^3/uL (1.0-4.8) Monocytes # (Auto) 0.5 x10^3/uL (0.0-1.1) Eosinophils # (Auto) 0.0 x10^3/uL (0.0-0.7) Basophils # (Auto) 0.0 x10^3/uL (0.0-0.2) Urine Collection Type Unknown Urine Color (Auto) Yellow Urine Turbidity Hazy Urine pH (Auto) 6.0 (<5.0-8.0) Urine Specific [place] 1.023 (1.000-1.030) Urine Protein (Auto) 200 mg/dL (Negative) Urine Glucose (Auto)(UA) Negative mg/dL (Negative) Urine Ketones (Auto) 40 mg/dL (Negative) Urine Blood (Auto) Moderate (Negative) Urine Nitrite Negative (Negative) Urine Bilirubin (Auto) Negative (Negative) Urine Urobilinogen (Auto) Normal mg/dL (Normal) Urine Leukocyte Esterase (Auto) Negative (Negative) Urine RBC Occ /HPF (0-2) Urine WBC 1-4 /HPF (0-4) Urine Squamous Epithelial Cells Mod /LPF Urine Amorphous Sediment Present /HPF Urine Bacteria Few /HPF (0-FEW) Urine Hyaline Casts Moderate /HPF Urine Granular Casts Occasional /HPF Urine Mucus Marked /LPF Sodium Level 139 mmol/L (136-145) Potassium Level 3.7 mmol/L (3.5-5.1) Chloride Level 97 mmol/L (98-107) Carbon Dioxide Level 22 mmol/L (21-32) Anion Gap 20 (6-14) Blood Urea Nitrogen 18 mg/dL (7-20) Creatinine 1.1 mg/dL (0.6-1.0) Estimated GFR (Cockcroft-Gault) 55.9 BUN/Creatinine Ratio 16 (6-20) Glucose Level 132 mg/dL (70-99) Calcium Level 8.6 mg/dL (8.5-10.1) Total Bilirubin 0.6 mg/dL (0.2-1.0) Aspartate Amino Transf (AST/SGOT) 130 U/L (15-37) Alanine Aminotransferase (ALT/SGPT) 124 U/L (14-59) Alkaline Phosphatase 129 U/L (46-116) Total Protein 8.4 g/dL (6.4-8.2) Albumin 4.3 g/dL (3.4-5.0) Albumin/Globulin Ratio 1.0 (1.0-1.7) Lipase 144 U/L (73-393) Salicylates Level 0.7 mg/dL (2.8-20.0) Salicylate Last Dose Date Salicylate Last Dose Time Acetaminophen Level < 2 mcg/ml (10-30) Acetaminophen Last Dose Date Acetaminophen Last Dose Time Ethyl Alcohol Level 320 mg/dL (0-10) Bedside Urine HCG, Qualitative Hcg negative (Negative) SARS-CoV-2 Antigen (Rapid) Negative (NEGATIVE) VTE Prophylaxis Ordered VTE Prophylaxis Devices: Yes VTE Pharmacological Prophylaxi: No Assessment/Plan Assessment/Plan Acute alcohol intoxication - already in withdrawal Acute encephalopathy - toxic due to alcohol Acute volume depletion - IVF replacement Anion gap metabolic acidosis - ethanol Transaminitis with increased AST ALT ratio suggestive chronic alcohol use Severe depression - on lamictal outpatient. Alcohol abuse -we will add gabapentin as well. Mild hypokalemia FEN - Regular diet PPX - ambulatory FULL CODE Dispo - inpatient. Justifications for Admission Other Justification PATRICIA PAREDES MD August 06, 2021 08:25
[2021-08-06] MEDS ORDERED: THIAMINE 100 MG TABLET. PO SCH (09:00)
[2021-08-06] MEDS ORDERED: MULTIVITAMIN with MINERAL TABLET. PO SCH (09:00)
[2021-08-06] MEDS ORDERED: FOLIC ACID 1 MG TABLET. PO SCH (09:00)
[2021-08-06] MEDS ORDERED: MULTIVIT INFUSN,ADULT 4,VIT K 10 ML, THIAMINE INJ 100 MG, FOLIC ACID INJ 1 MG in IV NOR... IV SCH (09:00)
[2021-08-06] MEDS ORDERED: lamoTRIgine 100 MG TABLET. PO SCH (09:15)
[2021-08-06] MEDS ORDERED: NALTREXONE HCL 50 MG TABLET. PO SCH (10:00)
[2021-08-06] MEDS: GABAPENTIN 300 MG CAPSULE. PO SCH ×2 (10:15→11:35)
[2021-08-06 11:00] VITALS: BP 122/77
[2021-08-06 15:00] VITALS: BP 139/84
--- NOTE | 2021-08-06 16:27 | NUR ---
SS following for discharge planning. SS reviewed pt chart and discussed with pt RN. Pt is currently on room air. COVID19 positive. ETOH. Pat team referral made as pt requesting referrals for rehabilitation for ETOH. SS will continue to follow for discharge planning.
[2021-08-06] MEDS ORDERED: GABA300C18 PO (17:32)
[2021-08-06] MEDS ORDERED: LORA-434 PO (17:35)
--- NOTE | 2021-08-06 17:41 | PDOC3 ---
Discharge Summary Visit Information Date of Admission: August 06, 2021 Date of Discharge: August 06, 2021 Admitting Diagnosis: Alcohol intoxication Final Diagnosis Problems Medical Problems: (1) Alcohol intoxication Status: Acute Brief Hospital Course Allergies Allergies Coded Allergies Type Severity Reaction Last Updated Verified No Known Drug Allergies 10/11/20 No Vital Signs Vital Signs Date Time Temp Pulse Resp B/P (MAP) Pulse Ox O2 Delivery O2 Flow Rate FiO2 08/06/21 15:00 98.0 91 18 139/84 (102) 96 Room Air 98.0 Lab Results Laboratory Tests Test 08/05/21 22:36 08/05/21 22:53 08/06/21 02:56 White Blood Count 5.7 x10^3/uL (4.0-11.0) Red Blood Count 4.77 x10^6/uL (3.50-5.40) Hemoglobin 15.0 g/dL (12.0-15.5) Hematocrit 42.3 % (36.0-47.0) Mean Corpuscular Volume 89 fL (79-100) Mean Corpuscular Hemoglobin 32 pg (25-35) Mean Corpuscular Hemoglobin Concent 36 g/dL (31-37) Red Cell Distribution Width 15.1 % (11.5-14.5) Platelet Count 225 x10^3/uL (140-400) Neutrophils (%) (Auto) 57 % (31-73) Lymphocytes (%) (Auto) 33 % (24-48) Monocytes (%) (Auto) 9 % (0-9) Eosinophils (%) (Auto) 1 % (0-3) Basophils (%) (Auto) 1 % (0-3) Neutrophils # (Auto) 3.2 x10^3/uL (1.8-7.7) Lymphocytes # (Auto) 1.9 x10^3/uL (1.0-4.8) Monocytes # (Auto) 0.5 x10^3/uL (0.0-1.1) Eosinophils # (Auto) 0.0 x10^3/uL (0.0-0.7) Basophils # (Auto) 0.0 x10^3/uL (0.0-0.2) Urine Collection Type Unknown Urine Color (Auto) Yellow Urine Turbidity Hazy Urine pH (Auto) 6.0 (<5.0-8.0) Urine Specific [place] 1.023 (1.000-1.030) Urine Protein (Auto) 200 mg/dL (Negative) Urine Glucose (Auto)(UA) Negative mg/dL (Negative) Urine Ketones (Auto) 40 mg/dL (Negative) Urine Blood (Auto) Moderate (Negative) Urine Nitrite Negative (Negative) Urine Bilirubin (Auto) Negative (Negative) Urine Urobilinogen (Auto) Normal mg/dL (Normal) Urine Leukocyte Esterase (Auto) Negative (Negative) Urine RBC Occ /HPF (0-2) Urine WBC 1-4 /HPF (0-4) Urine Squamous Epithelial Cells Mod /LPF Urine Amorphous Sediment Present /HPF Urine Bacteria Few /HPF (0-FEW) Urine Hyaline Casts Moderate /HPF Urine Granular Casts Occasional /HPF Urine Mucus Marked /LPF Sodium Level 139 mmol/L (136-145) Potassium Level 3.7 mmol/L (3.5-5.1) Chloride Level 97 mmol/L (98-107) Carbon Dioxide Level 22 mmol/L (21-32) Anion Gap 20 (6-14) Blood Urea Nitrogen 18 mg/dL (7-20) Creatinine 1.1 mg/dL (0.6-1.0) Estimated GFR (Cockcroft-Gault) 55.9 BUN/Creatinine Ratio 16 (6-20) Glucose Level 132 mg/dL (70-99) Calcium Level 8.6 mg/dL (8.5-10.1) Total Bilirubin 0.6 mg/dL (0.2-1.0) Aspartate Amino Transf (AST/SGOT) 130 U/L (15-37) Alanine Aminotransferase (ALT/SGPT) 124 U/L (14-59) Alkaline Phosphatase 129 U/L (46-116) Total Protein 8.4 g/dL (6.4-8.2) Albumin 4.3 g/dL (3.4-5.0) Albumin/Globulin Ratio 1.0 (1.0-1.7) Lipase 144 U/L (73-393) Salicylates Level 0.7 mg/dL (2.8-20.0) Salicylate Last Dose Date Salicylate Last Dose Time Acetaminophen Level < 2 mcg/ml (10-30) Acetaminophen Last Dose Date Acetaminophen Last Dose Time Ethyl Alcohol Level 320 mg/dL (0-10) Bedside Urine HCG, Qualitative Hcg negative (Negative) Coronavirus (COVID-19)(PCR) Positive (NOT DETECTD) SARS-CoV-2 Antigen (Rapid) Negative (NEGATIVE) Laboratory Tests Test 08/05/21 22:36 08/05/21 22:53 08/06/21 02:56 White Blood Count 5.7 x10^3/uL (4.0-11.0) Red Blood Count 4.77 x10^6/uL (3.50-5.40) Hemoglobin 15.0 g/dL (12.0-15.5) Hematocrit 42.3 % (36.0-47.0) Mean Corpuscular Volume 89 fL (79-100) Mean Corpuscular Hemoglobin 32 pg (25-35) Mean Corpuscular Hemoglobin Concent 36 g/dL (31-37) Red Cell Distribution Width 15.1 % (11.5-14.5) Platelet Count 225 x10^3/uL (140-400) Neutrophils (%) (Auto) 57 % (31-73) Lymphocytes (%) (Auto) 33 % (24-48) Monocytes (%) (Auto) 9 % (0-9) Eosinophils (%) (Auto) 1 % (0-3) Basophils (%) (Auto) 1 % (0-3) Neutrophils # (Auto) 3.2 x10^3/uL (1.8-7.7) Lymphocytes # (Auto) 1.9 x10^3/uL (1.0-4.8) Monocytes # (Auto) 0.5 x10^3/uL (0.0-1.1) Eosinophils # (Auto) 0.0 x10^3/uL (0.0-0.7) Basophils # (Auto) 0.0 x10^3/uL (0.0-0.2) Urine Collection Type Unknown Urine Color (Auto) Yellow Urine Turbidity Hazy Urine pH (Auto) 6.0 (<5.0-8.0) Urine Specific [place] 1.023 (1.000-1.030) Urine Protein (Auto) 200 mg/dL (Negative) Urine Glucose (Auto)(UA) Negative mg/dL (Negative) Urine Ketones (Auto) 40 mg/dL (Negative) Urine Blood (Auto) Moderate (Negative) Urine Nitrite Negative (Negative) Urine Bilirubin (Auto) Negative (Negative) Urine Urobilinogen (Auto) Normal mg/dL (Normal) Urine Leukocyte Esterase (Auto) Negative (Negative) Urine RBC Occ /HPF (0-2) Urine WBC 1-4 /HPF (0-4) Urine Squamous Epithelial Cells Mod /LPF Urine Amorphous Sediment Present /HPF Urine Bacteria Few /HPF (0-FEW) Urine Hyaline Casts Moderate /HPF Urine Granular Casts Occasional /HPF Urine Mucus Marked /LPF Sodium Level 139 mmol/L (136-145) Potassium Level 3.7 mmol/L (3.5-5.1) Chloride Level 97 mmol/L (98-107) Carbon Dioxide Level 22 mmol/L (21-32) Anion Gap 20 (6-14) Blood Urea Nitrogen 18 mg/dL (7-20) Creatinine 1.1 mg/dL (0.6-1.0) Estimated GFR (Cockcroft-Gault) 55.9 BUN/Creatinine Ratio 16 (6-20) Glucose Level 132 mg/dL (70-99) Calcium Level 8.6 mg/dL (8.5-10.1) Total Bilirubin 0.6 mg/dL (0.2-1.0) Aspartate Amino Transf (AST/SGOT) 130 U/L (15-37) Alanine Aminotransferase (ALT/SGPT) 124 U/L (14-59) Alkaline Phosphatase 129 U/L (46-116) Total Protein 8.4 g/dL (6.4-8.2) Albumin 4.3 g/dL (3.4-5.0) Albumin/Globulin Ratio 1.0 (1.0-1.7) Lipase 144 U/L (73-393) Salicylates Level 0.7 mg/dL (2.8-20.0) Salicylate Last Dose Date Salicylate Last Dose Time Acetaminophen Level < 2 mcg/ml (10-30) Acetaminophen Last Dose Date Acetaminophen Last Dose Time Ethyl Alcohol Level 320 mg/dL (0-10) Bedside Urine HCG, Qualitative Hcg negative (Negative) Coronavirus (COVID-19)(PCR) Positive (NOT DETECTD) SARS-CoV-2 Antigen (Rapid) Negative (NEGATIVE) Brief Hospital Course Ms Monaco is a 35 year old female with history of depression since age 10, alcohol abuse delirium tremens and seizures due to alcohol withdrawal presents to the ED today complaining of confusion and intoxication. She has been drinking for 2 weeks straight and drank 1/5 of rum prior to arrival.. She states she drinks daily and would like to get help. She states she typically has to be admitted to detox. She states she is currently on AA program. She previously did inpatient cut with [facility] in 2016 and did their IOP program and has since been hospitalized multiple times for alcohol withdrawal issues and [facility] 4 months in 2019 and in 2 months late in 2020 but continues to relapse. She is maintained on as needed lorazepam outpatient. Labs with WBC 5.7, Hb 15, platelets 225, NA 139, K3.7, BUN 18, CR 1.1, anion gap 20, glucose 132, calcium 8.6, bilirubin 0.6, AST 130, ALT 124, alkaline phosphatase 129, albumin 4.3, lipase 144. Rapid COVID-19 negative. Alcohol level at 2236 was 320 mg/James After continued observation for 18 hours patient did require 2 doses of lorazepam started on gabapentin for alcohol dependence. PCR for COVID-19 returned positive and patient felt this her CIWA score was lower she was given outpatient resources for addiction services and discharged home with self care and Paxlovid prescription. Problem list: Acute alcohol intoxication - already in withdrawal. Given lorazepam taper for home and started on gabapentin and naltrexone Acute encephalopathy - toxic due to alcohol. Improved after sobering Acute volume depletion - IVF replacement Anion gap metabolic acidosis - ethanol. Transaminitis with increased AST ALT ratio suggestive chronic alcohol use Severe depression - on lamictal outpatient. Alcohol abuse -we will add gabapentin as well. Mild hypokalemia COVID-19 -asymptomatic and not hypoxic. She is fully vaccinated boosted. Given Paxil prescription in case she does develop symptoms to initiate therapy within 24 hours. Advised to isolate for 5 days and then wear a mask in public for 5 additional days thereafter Greater than 35 minutes spent on same day admission discharge Discharge Information Condition at Discharge: Improved Follow Up: Weeks (1) Disposition/Orders: D/C to Home Scheduled Duloxetine Hcl (Duloxetine Hcl) 60 Mg Capsule., 1 CAP PO BID for depression, (Reported) Entered as Reported by: LUCIO SALDANA on 08/06/21717 Last Action: Converted on 08/06/21856 by PATRICIA PAREDES MD Gabapentin (Gabapentin) 300 Mg Capsule, 300 MG PO TID for Alcohol dependence for 30 Days, #90 Ref 5 Prescribed by: PATRICIA PAREDES MD on 08/06/211731 Lamotrigine (Lamotrigine) 200 Mg Tablet, 1 TAB PO DAILY for seizures, (Reported) Entered as Reported by: LUCIO SALDANA on 08/06/21717 Last Action: Converted on 08/06/21856 by PATRICIA PAREDES MD Naltrexone Hcl (Naltrexone Hcl) 50 Mg Tablet, 1 TAB PO DAILY for alcohol abuse, (Reported) Entered as Reported by: LUCIO SALDANA on 08/06/21717 Last Action: Converted on 08/06/21856 by PATRICIA PAREDES MD Quetiapine Fumarate (Seroquel) 100 Mg Tablet, 1 TAB PO QHS for depression, (Reported) Entered as Reported by: LUCIO SALDANA on 08/06/21717 Last Action: Continued on 08/06/21856 by PATRICIA PAREDES MD Scheduled PRN Lorazepam (Ativan) 1 Mg Tablet, 1 MG PO PRN Q6HRS PRN for ALCOHOL WITHDRAWAL for 3 Days, #12 Prescribed by: PATRICIA PAREDES MD on 08/06/211736 Justicifation of Admission Dx: Justifications for Admission: Justification of Admission Dx: Yes Altered Mental Status: Altered Mental Status PATRICIA PAREDES MD August 06, 2021 17:41
--- NOTE | 2021-08-06 19:00 | NUR ---
Discharge Note: [facility] Discharge instructions and discharge home medications reviewed with Patient and a copy given. All questions have been answered and understanding verbalized. The following instructions and handouts were given: Discharge medications Discontinued lines and drains: IV and teletypesetter monitor removed Patient discharged to home
[2021-08-06] MEDS ORDERED: QUEtiapine 100 MG TABLET. PO SCH (21:00)
[2021-08-07] MEDS ORDERED: DULoxetine HCL 30 MG CAPSULE.DR PO SCH (09:00)
== END 2021-08-06 18:20 | disposition home or self-care (01) | DRG 56 ==
LOC: ER 21:01 → 6 SOUTH 08-06 00:35
PROVIDERS: ADMIT Internal Medicine; ATTEND Internal Medicine
DX: G31.2 Degeneration of nervous system due to alcohol (principal); G92.8 Other toxic encephalopathy; U07.1 COVID-19; E87.2 Acidosis; F10.231 Alcohol dependence with withdrawal delirium; R56.9 Unspecified convulsions; Y90.8 Blood alcohol level of 240 mg/100 ml or more; F32.A Depression, unspecified; F41.9 Anxiety disorder, unspecified; E86.9 Volume depletion, unspecified; R74.01 Elevation of levels of liver transaminase levels; E87.6 Hypokalemia; F10.229 Alcohol dependence with intoxication, unspecified; Z82.49 Family history of ischemic heart disease and other diseases of the circulatory system; Z81.8 Family history of other mental and behavioral disorders; Z79.899 Other long term (current) drug therapy
CPT/HCPCS: 36415; 80053; 80329; 81001; 81025; 83690; 85025; 87426; 96374; 96375; G0480; J2060; J2405; J3411; J3490; J7030; U0003; 99285-25; G0378